=== PATIENT | male | born 1955 | race Caucasian/White ===

== ENCOUNTER → 2018-10-14 | Outpatient (CLI) | payer OTHER ==
--- NOTE | 2018-10-15 08:34 | RADIOLOGY REPORT (SQ) ---
EXAM DESCRIPTION: U/S NON-OB PELVIS LTD W/O DOP COMPLETED DATE/TIME: 10/14/2018 6:05 pm REASON FOR STUDY: R10.31 RIGHT LOWER QUADRANT PAIN R10.31 RIGHT LOWER QUADRANT PAIN COMPARISON: None. TECHNIQUE: Dynamic and static grayscale images acquired of the localized site of clinical concern an d recorded on PACS. Additional selected color Doppler and spectral images recorded. SITE OF CONCERN: Right inguinal region. LIMITATIONS: None. FINDINGS: There is no sonographic evidence of inguinal hernia. There is a single benign-appearing l ymph node. No abnormal solid or cystic masses. In the visualized portion of the upper right scrotum, there is a complex cyst in the head of the epid idymis measuring 1.5 cm. This contains homogeneous low-level internal echoes. This is reportedly is in the area of the patient's pain. IMPRESSION: 1. 1.5 CM CYST IN THE HEAD OF THE EPIDIDYMIS ON THE RIGHT CONTAINING INTERNAL ECHOES, PROBABLY A SPER MATOCELE. THIS REPORTEDLY IS IN THE REGION OF THE PATIENT'S PAIN. 2. NO SONOGRAPHIC EVIDENCE OF RIGHT INGUINAL HERNIA. NO ABNORMAL SONOGRAPHIC FINDINGS IN THIS AREA. TECHNICAL DOCUMENTATION: JOB ID: [id number] [employer]- All Rights Reserved Reading location - IP/workstation name: [email or web address]
== END ==
LOC: RAD 16:47
PROVIDERS: ATTEND Nurse Practitioner Family
DX: R10.31 Right lower quadrant pain (principal)
CPT/HCPCS: 76857

== ENCOUNTER 2019-06-17 00:08 | Inpatient (IN) | payer OTHER ==
[2019-06-17] MEDS ORDERED: ASPIRIN 325 MG TABLET PO ONE (03:25)
[2019-06-17] MEDS ORDERED: NITROGLYCERIN 0.4 MG/TAB 25 TAB/BOTTLE SL PRN ×2 (03:25→05:59)
[2019-06-17 04:01] LABS: ABSOLUTE EOSINOPHILS # (AUTO) 0.1 10^3/uL (0.0-0.6); ABSOLUTE LYMPHOCYTES (AUTO) 1.6 10^3/uL (0.5-4.7); ABSOLUTE MONOCYTES (AUTO) 0.6 10^3/uL (0.1-1.4); ABSOLUTE NEUT (AUTO) 4.1 10^3/uL (1.7-8.2); BASOPHILS % (AUTO) 0.6 % (0-2); EOSINOPHILS % (AUTO) 1.6 % (0-6); HEMATOCRIT 42.2 % (37.9-51.0); HEMOGLOBIN 14.5 g/dL (13.5-17.0); LYMPHOCYTES % (AUTO) 24.9 % (13-45); MEAN CORPUSCULAR HEMOGLOBIN 29.4 pg (27.0-33.4); MEAN CORPUSCULAR HGB CONC 34.5 g/dL (32.0-36.0); MEAN CORPUSCULAR VOLUME 85 fl (80-97); MONOCYTES % (AUTO) 9.8 % (3-13); PLATELET COUNT 157 10^3/uL (150-450); RED BLOOD COUNT 4.94 10^6/uL (4.35-5.55); RED CELL DISTRIBUTION WIDTH 13.5 % (11.5-14.0); SEGMENTED NEUTROPHILS % (AUTO) 63.1 % (42-78); TOTAL CELLS COUNTED % (AUTO) 100 %; WHITE BLOOD COUNT 6.6 10^3/uL (4.0-10.5)
--- NOTE | 2019-06-17 04:22 | RADIOLOGY REPORT (SQ) ---
EXAM DESCRIPTION: XR CHEST 1 VIEW COMPLETED DATE/TME: 06/17/2019 03:00 CLINICAL HISTORY: 63 years, Male, chest pain COMPARISON: None. NUMBER OF VIEWS: 1 TECHNIQUE: Portable chest LIMITATIONS: None. FINDINGS: The heart size is normal. Mild elevation of the right hemidiaphragm. Lungs are clear. No pneumothorax IMPRESSION: No acute cardiopulmonary process copyright 2010 [employer]- All Rights Reserved
[2019-06-17 04:32] LABS: CREATINE KINASE MB 1.62 ng/mL (<4.55)
[2019-06-17 04:34] LABS: TROPONIN I 0.06 ng/mL
--- NOTE | 2019-06-17 04:44 | ER Document Report ---
ED General - General Chief Complaint: Shoulder Pain Stated Complaint: LEFT SHOULDER PAIN Time Seen by Provider: 06/17/19 02:59 Primary Care Provider: MICHAEL LOVE FNP-C [Primary Care Provider] - Follow up as needed Notes: 63-year-old male presents emergency department complaining of left-sided shoulder pain around 10 PM last evening that radiates down his left arm to his hand and across to the left side of his chest. States that it sometimes feel like a pain and sometimes it feels like a burning. It is unrelieved with Aleve and only was partially improved when his massaged his shoulder but then it immediately returned to the same severity as before when he laid down flat. Patient's largest concern is possibility of heart attack as he had both brothers from an VT. One at 58 and the other in his early 60s. Patient is a type II snx-ndcteeo-ddifxvnfz diabetic who is hyperlipidemic and hypertensive. Last stress test was over 2 years ago. Patient does note that this feels somewhat similar to when he was diagnosed with non-Hodgkin's lymphoma however he has not noticed any enlarged lymph nodes in his axilla. States that he has been in remission since 1984. TRAVEL OUTSIDE OF THE [place] IN LAST 30 DAYS: No - Related Data Allergies/Adverse Reactions: No Known Allergies Allergy (Unverified 06/17/19 00:56) Home Medications: lisinopril, metformin, atorvastatin Past Medical History - General Information source: Patient - Social History Smoking Status: Never Smoker Frequency of alcohol use: Occasional Drug Abuse: None Family History: CAD - 2 brothers from heart attacks one at 58 and 1 at 60. Patient has suicidal ideation: No Patient has homicidal ideation: No Neurological Medical History: Reports: Hx Migraine Endocrine Medical History: Reports: Hx Diabetes Mellitus Type 2 Review of Systems - Review of Systems Constitutional: No symptoms reported EENT: No symptoms reported Cardiovascular: See HPI Respiratory: No symptoms reported Musculoskeletal: See HPI -: Yes All other systems reviewed and negative Physical Exam - Vital signs Vitals: Temp Pulse Resp BP Pulse Ox 97.9 F 69 16 169/93 H 98 06/17/19 00:44 06/17/19 00:44 06/17/19 00:44 06/17/19 00:44 06/17/19 00:44 Interpretation: Hypertensive - Notes Notes: GENERAL: Alert, interacts well. No acute distress. HEAD: Normocephalic, atraumatic EYES: Pupils equal, round and reactive to light, extraocular movements intact. ENT: Oral mucosa moist, tongue midline. NECK: Full range of motion, supple, trachea midline. LUNGS: Clear to auscultation bilaterally, no wheezes, rales or rhonchi, no respiratory distress. Slight tenderness palpation in the midclavicular line just below the clavicle on the left-hand side. No rashes noted. HEART: Regular rate and rhythm, no murmurs, gallops, rubs. ABDOMEN: Soft, nontender, nondistended, bowel sounds present in all 4 quadrants. EXTREMITIES: Moves all 4 extremities spontaneously, no edema, radial and dorsalis pedis pulses 2/4 bilaterally. No cyanosis. NEUROLOGICAL: Alert and oriented x3, normal speech. PSYCH: Normal mood, normal affect. SKIN: Warm, Dry, normal turgor, no rashes or lesions noted. Course - Re-evaluation Re-evalutation: 06/17/19 05:42 Patient is chest pain and arm pain free after 1 nitroglycerin, CBC unremarkable, CMP shows elevated glucose at 247, troponin indeterminate 0.060, chest x-ray shows no acute process. EKG shows T wave inversions but not a STEMI. Discussed with patient and family, given Lovenox and aspirin. Discussed with Dr. Rodriguez, agrees to admit the patient to his service. - Vital Signs Vital signs: Temp Pulse Resp BP Pulse Ox 97.9 F 69 14 175/99 H 96 06/17/19 00:49 06/17/19 00:49 06/17/19 05:02 06/17/19 05:02 06/17/19 05:02 - Laboratory Result Diagrams: 06/17/19 03:51 06/17/19 03:51 Laboratory results interpreted by me: 06/17/19 03:51 Glucose 247 H - EKG Interpretation by Me Additional EKG results interpreted by me: 06/17/19 04:44 EKG shows sinus rhythm at a rate of 68, T wave inversions noted in lead III, aVF, V3, no ST segment elevations or depressions per my interpretation. Discharge - Discharge Clinical Impression: Chest pain, rule out acute myocardial infarction Condition: Fair Disposition: ADMITTED INPATIENT Admitting Provider: Jennifer (Hospitalist) Unit Admitted: Telemetry Referrals: MICHAEL LOVE FNP-Vamsi [Primary Care Provider] - Follow up as needed
[2019-06-17 04:45] LABS: ALKALINE PHOSPHATASE 67 U/L (38-126); ANION GAP 12 (5-19); ASPARTATE AMINO TRANSFERASE 30 U/L (17-59); BILIRUBIN,DIRECT 0.2 mg/dL (0.0-0.4); BILIRUBIN,TOTAL 0.5 mg/dL (0.2-1.3); BLOOD UREA NITROGEN 13 mg/dL (7-20); CALCIUM 9.2 mg/dL (8.4-10.2); CARBON DIOXIDE 25 mmol/L (22-30); CHLORIDE 104 mmol/L (98-107); CREATINE KINASE 72 U/L (55-170); GLUCOSE 247 mg/dL (75-110); POTASSIUM 4.3 mmol/L (3.6-5.0); TOTAL PROTEIN 7.2 g/dL (6.3-8.2)
[2019-06-17] MEDS ORDERED: ENOXAPARIN SODIUM INJ 120 MG/0.8 ML DISP.SYRIN SUBCUT ONE (05:36)
[2019-06-17] MEDS ORDERED: TEMAZEPAM 15 MG CAPSULE PO PRN (05:53)
[2019-06-17] MEDS ORDERED: PROMETHAZINE HCL INJ 25 MG/1 ML VIAL IV PRN (05:53)
[2019-06-17] MEDS ORDERED: MAG HYDROX/AL HYDROX/SIMETH SUSP 30 ML UDCUP PO PRN (05:53)
[2019-06-17] MEDS ORDERED: MAGNESIUM HYDROXIDE SUSP 30 ML UDCUP PO PRN (05:53)
[2019-06-17] MEDS ORDERED: HYDRALAZINE HCL INJ/PF 20 MG/1 ML SDV IV PRN (05:59)
[2019-06-17] MEDS ORDERED: LEVALBUTEROL HCL NEB 0.63 MG/3 ML AMPUL NEB PRN (05:59)
[2019-06-17] MEDS ORDERED: DEXTROSE 50%-WATER 25 GM/50 ML DISP.SYRIN IV PRN ×2 (05:59)
[2019-06-17] MEDS ORDERED: DEXTROSE 40% GEL 15 GM TUBE PO PRN ×2 (05:59)
[2019-06-17] MEDS ORDERED: INSULIN REG, HUMAN 100 UNIT/ML 3 ML VIAL (PYX) SUBCUT PRN (05:59)
[2019-06-17] MEDS ORDERED: GLUCAGON,HUMAN RECOMB 1 MG INJ IM PRN (05:59)
[2019-06-17] MEDS ORDERED: MORPHINE SULFATE 10 MG/ML INJ IV PRN ×3 (05:59)
[2019-06-17] MEDS ORDERED: DIAZEPAM 2 MG TABLET PO PRN (06:01)
--- NOTE | 2019-06-17 06:44 | EKG REPORT ---
SEVERITY:- BORDERLINE ECG - SINUS RHYTHM BORDERLINE T ABNORMALITIES, DIFFUSE LEADS : Confirmed by: Waqas Trinidad MD 17-Jun-2019 06:43:39
--- NOTE | 2019-06-17 06:51 | PDOC H&P ---
History of Present Illness Admission Date/PCP: 06/17/19 05:47 BOOGIE GUERRA-Vamsi Patient complains of: Left shoulder pain History of Present Illness: CRISTIAN DE LA ROSA is a 63 year old male who presents the emergency room with an acutely painful left shoulder. He admits the sudden onset of pain in his left posterior shoulder, while at rest, which radiated proximally into his left anterior chest and distally down his left arm. The pain is described as a constant severe burning and aching in the left shoulder. The pain was unrelieved by Ecotrin 81 mg, Aleve, and extra blood pressure pill and only minimally relieved during active massage with return shortly after cessation of the massage. He denies other associated or accompanying signs and symptoms. He denies prior similar episodes. He has not identified any additional aggravating or ameliorating factors for his left shoulder pain. His left shoulder pain resolved immediately following the administration of 1 nitroglycerin sub lingually by the EMS crew. In the emergency room he was found to have an equivocal initial evaluation with no evidence of acute myocardial ischemia or injury on his EKG however his serum troponin was elevated at 0.060. He was subsequently admitted to the hospital for further evaluation treatment on inpatient observation status. Past Medical History Cardiac Medical History: Reports: Hyperlipidema, Hypertension Denies: Atrial Fibrillation, Coronary Artery Disease Pulmonary Medical History: Denies: Asthma, Chronic Obstructive Pulmonary Disease (COPD) EENT Medical History: Denies: Cataracts, Ears - Hearing aids Neurological Medical History: Reports: Migraine Denies: Hemorrhagic CVA, Ischemic CVA, Seizures Endocrine Medical History: Reports: Diabetes Mellitus Type 2, Obesity Denies: Diabetes Mellitus Type 1, Hyperthyroidism, Hypothyroidism Renal/ Medical History: Denies: Chronic Kidney Disease, Nephrolithiasis Malignancy Medical History: Reports: Lymphoma - Hodgkin's lymphoma GI Medical History: Denies: Cirrhosis, Crohn's Disease, Hepatitis, Ulcerative Colitis Musculoskeltal Medical History: Denies: Arthritis, Fibromyalgia Skin Medical History: Denies: Eczema, Psoriasis Psychiatric Medical History: Denies: Alcohol Dependency, Depression, Substance Abuse, Tobacco Dependency, Other Traumatic Medical History: Reports: None Hematology: Denies: Anemia, Bleeding Tendencies Infectious Medical History: Reports: None Past Surgical History Past Surgical History: Reports: Herniorrhaphy, Other - [place] procedure: Chest lymph node biopsies for staging of lymphoma Social History Information Source: Patient Lives with: Spouse/Significant other Smoking Status: Never Smoker Electronic Cigarette use?: No Frequency of Alcohol Use: Rare Hx Recreational Drug Use: No Drugs: None Hx Prescription Drug Abuse: No - Advance Directive Resuscitation Status: Full Code Surrogate healthcare decision maker:: Qi De La Rosa Family History Family History: CAD - 2 brothers from heart attacks one at 58 and 1 at 60., DM, Hypertension, Thyroid Disfunction. denies: Malignancy Parental Family History Reviewed: Yes Children Family History Reviewed: No Sibling(s) Family History Reviewed.: Yes Medication/Allergy Allergies/Adverse Reactions: No Known Allergies Allergy (Unverified 06/17/19 00:56) Review of Systems Constitutional: ABSENT: chills, fever(s) Eyes: ABSENT: visual disturbances, other - Eye pain Ears: ABSENT: hearing changes, other - Ear pain Nose, Mouth, and Throat: ABSENT: headache(s), mouth pain, sore throat Cardiovascular: PRESENT: as per HPI, chest pain. ABSENT: palpitations Respiratory: ABSENT: cough, dyspnea Gastrointestinal: ABSENT: abdominal pain, constipation, diarrhea, nausea, vomiting Genitourinary: ABSENT: dysuria, hematuria Musculoskeletal: PRESENT: as per HPI, other - Left shoulder pain. ABSENT: back pain, joint swelling, muscle weakness Integumentary: ABSENT: pruritus, rash Neurological: ABSENT: confusion, convulsions, focal weakness, memory loss, syncope Psychiatric: ABSENT: anxiety, depression Endocrine: ABSENT: cold intolerance, heat intolerance Hematologic/Lymphatic: ABSENT: easy bleeding, easy bruising Allergic/Immunologic: ABSENT: seasonal rhinorrhea Physical Exam Vital Signs: Temp Pulse Resp BP Pulse Ox 97.9 F 69 14 175/99 H 96 06/17/19 00:49 06/17/19 00:49 06/17/19 05:02 06/17/19 05:02 06/17/19 05:02 Intake & Output 06/15/19 06/16/19 06/17/19 23:59 23:59 23:59 Weight 111.1 kg General appearance: PRESENT: no acute distress, cooperative Head exam: PRESENT: atraumatic, normocephalic Eye exam: PRESENT: conjunctiva pink. ABSENT: conjunctival injection, scleral icterus Ear exam: PRESENT: normal external ear exam. ABSENT: bleeding, drainage Mouth exam: PRESENT: dry mucosa, neck supple Neck exam: ABSENT: thyromegaly, tracheal deviation Respiratory exam: PRESENT: clear to auscultation anthony, symmetrical, unlabored Cardiovascular exam: PRESENT: RRR. ABSENT: clicks, gallop, rubs Pulses: PRESENT: normal radial pulses, normal dorsalis pedis pul GI/Abdominal exam: PRESENT: normal bowel sounds, soft. ABSENT: tenderness Rectal exam: PRESENT: deferred Extremities exam: ABSENT: joint swelling, pedal edema Musculoskeletal exam: ABSENT: deformity, dislocation Neurological exam: PRESENT: alert, oriented to person, oriented to place, oriented to time, oriented to situation, CN II-XII grossly intact. ABSENT: motor sensory deficit Psychiatric exam: PRESENT: appropriate affect, normal mood Skin exam: PRESENT: dry, intact, warm. ABSENT: jaundice, rash, urticaria Results Laboratory Results: 06/17/19 03:51 06/17/19 03:51 06/17/19 06/17/19 03:51 03:51 WBC 6.6 RBC 4.94 Hgb 14.5 Hct 42.2 MCV 85 MCH 29.4 MCHC 34.5 RDW 13.5 Plt Count 157 Seg Neutrophils % 63.1 Sodium 140.6 Potassium 4.3 Chloride 104 Carbon Dioxide 25 Anion Gap 12 BUN 13 Creatinine 0.76 Est GFR ( Amer) > 60 Glucose 247 H Calcium 9.2 Total Bilirubin 0.5 AST 30 Alkaline Phosphatase 67 Total Protein 7.2 Albumin 4.0 06/17/19 06/17/19 03:51 03:51 Creatine Kinase 72 CK-MB (CK-2) 1.62 Troponin I 0.060 Impressions: Chest X-Ray 06/17/19 03:00 IMPRESSION: No acute cardiopulmonary process copyright 2011 [employer]- All Rights Reserved Assessment and Plan - Diagnosis (1) Left shoulder pain Qualifiers: Chronicity: acute Qualified Code(s): M25.512 - Pain in left shoulder Is this a current diagnosis for this admission?: Yes (2) Hypertension Qualifiers: Hypertension type: essential hypertension Qualified Code(s): I10 - Essential (primary) hypertension Is this a current diagnosis for this admission?: Yes (3) Hyperlipidemia Qualifiers: Hyperlipidemia type: unspecified Qualified Code(s): E78.5 - Hyperlipidemia, unspecified Is this a current diagnosis for this admission?: Yes (4) Diabetes mellitus type 2 in obese Is this a current diagnosis for this admission?: Yes (5) History of Hodgkin's lymphoma Is this a current diagnosis for this admission?: Yes - Plan Summary Summary: Patient is admitted to observation status in a telemetry bed. He will receive usual supportive and symptomatic cares. Serial cardiac enzymes will be obtained as well serial EKGs. Patient will be treated with Lovenox 1 mg/kg subcu every 12 hours initially until testing has been completed. A Cardiolite stress test would be appropriate if the patient's cardiac enzymes remain in the indeterminate or normal range. Patient will use morphine sulfate 2 to 4 mg IV every 2 hours on as-needed basis for pain utilizing a sliding scale. Patient was started on clopidogrel and aspirin as well as a statin agent. Cardiology consultation with Dr. Jacky Stoll will be obtained. - Time Time Spent with patient: 25-34 minutes Anticipated discharge: Home Within: within 48 hours - Inpatient Certification Based on my medical assessment, after consideration of the patient's comorbidities, presenting symptoms, or acuity I expect that the services needed warrant INPATIENT care.: No I certify that my determination is in accordance with my understanding of Medicare's requirements for reasonable and necessary INPATIENT services [42 CFR 412.3e].: No Medical Necessity: Significant Comorbidiites Make Outpatient Treatment Too Risky, Need Close Monitoring Due to Risk of Patient Decompensation, Need For Continuous Telemetry Monitoring, Risk of Complication if Not Cared For in Hospital
[2019-06-17 08:42] LABS: CREATINE KINASE MB 1.91 ng/mL (<4.55)
[2019-06-17 08:47] LABS: TROPONIN I 0.106 ng/mL
[2019-06-17] MEDS: METOPROLOL TARTRATE 25 MG TABLET PO SCH ×2 (09:53→21:41)
[2019-06-17] MEDS: FAMOTIDINE 20 MG TABLET PO SCH ×2 (09:53→21:41)
[2019-06-17] MEDS ORDERED: ASPIRIN 81 MG TABLET, ENT COATED PO SCH (10:00)
[2019-06-17] MEDS: DOCUSATE SODIUM 100 MG CAPSULE PO SCH ×2 (10:26→17:39)
--- NOTE | 2019-06-17 12:35 | PDOC PROGRESS REPORT ---
Subjective Progress Note for:: 06/17/19 Subjective:: Patient is currently pain-free but extremely anxious. Strong family history of early heart disease. Reason For Visit: LEFT SHOULDER PAIN,HYPERTENSION,HYPERLIPIDEMIA Physical Exam Vital Signs: Temp Pulse Resp BP Pulse Ox 98.4 F 86 16 160/91 H 95 06/17/19 06:47 06/17/19 12:24 06/17/19 12:24 06/17/19 06:47 06/17/19 12:24 Intake & Output 06/16/19 06/17/19 06/18/19 06:59 06:59 06:59 Weight 109.4 kg General appearance: PRESENT: no acute distress, cooperative, well-developed Head exam: PRESENT: atraumatic, normocephalic Eye exam: PRESENT: conjunctiva pink. ABSENT: scleral icterus Mouth exam: PRESENT: moist, tongue midline Respiratory exam: PRESENT: clear to auscultation anthony, symmetrical, unlabored. ABSENT: rales, rhonchi, tachypnea, wheezes Cardiovascular exam: PRESENT: diastolic murmur - Systolic and possible diastolic murmurs., RRR, +S1, +S2, systolic murmur GI/Abdominal exam: PRESENT: normal bowel sounds, soft. ABSENT: distended, tenderness Rectal exam: PRESENT: deferred Gentrourinary exam: ABSENT: other Extremities exam: PRESENT: full ROM. ABSENT: joint swelling, pedal edema Musculoskeletal exam: PRESENT: ambulatory, normal inspection. ABSENT: deformity Neurological exam: PRESENT: alert, awake, oriented to person, oriented to place, oriented to time, oriented to situation, CN II-XII grossly intact. ABSENT: mot or sensory deficit Psychiatric exam: PRESENT: anxious, appropriate affect. ABSENT: agitated Focused psych exam: ABSENT: delusional, restlessness Skin exam: PRESENT: dry, warm. ABSENT: rash Results Laboratory Results: 06/17/19 03:51 06/17/19 03:51 06/17/19 06/17/19 03:51 03:51 WBC 6.6 RBC 4.94 Hgb 14.5 Hct 42.2 MCV 85 MCH 29.4 MCHC 34.5 RDW 13.5 Plt Count 157 Seg Neutrophils % 63.1 Sodium 140.6 Potassium 4.3 Chloride 104 Carbon Dioxide 25 Anion Gap 12 BUN 13 Creatinine 0.76 Est GFR ( Amer) > 60 Glucose 247 H Calcium 9.2 Total Bilirubin 0.5 AST 30 Alkaline Phosphatase 67 Total Protein 7.2 Albumin 4.0 06/17/19 06/17/19 06/17/19 03:51 03:51 06:04 Creatine Kinase 72 65 CK-MB (CK-2) 1.62 Troponin I 0.060 06/17/19 06/17/19 06/17/19 06:04 07:51 07:51 Creatine Kinase 68 CK-MB (CK-2) 1.58 1.91 Troponin I 0.106 Impressions: Chest X-Ray 06/17/19 03:00 IMPRESSION: No acute cardiopulmonary process copyright 2010 [employer] All Rights Reserved Assessment and Plan - Diagnosis (1) Left shoulder pain Qualifiers: Chronicity: acute Qualified Code(s): M25.512 - Pain in left shoulder Is this a current diagnosis for this admission?: Yes Plan: 06/17/2019-the patient's original complaint was left shoulder discomfort. It was acute onset. It started in the shoulder and radiated proximally as well as distally down the arm. He states that he had minimal relief with massage therapy. As it was persistent he was given 5 mg sublingual nitrogen and he reports that the pain resolved. It is likely that this is musculoskeletal pain. (2) Hypertension Qualifiers: Hypertension type: essential hypertension Qualified Code(s): I10 - Essential (primary) hypertension Is this a current diagnosis for this admission?: Yes Plan: 06/17/2019-the patient has had persistently elevated blood pressure since admission. He is a very anxious person and there is a strong family history of cardiac disease. I have added hydrochlorothiazide 12.5 mg to his lisinopril. Please see the cardiology consult note by Dr. Stoll. It is felt that the enzymes are more likely related to strain from hypertension than acute coronary syndrome. Stress test is not required at this point. I did order an echocardiogram. Dr. Stoll suggests continued monitoring of troponins until there is a downturning level. The patient will be able to discharged home and continue his current medication regimen. A 6 PM troponin is pending. (3) Hyperlipidemia Qualifiers: Hyperlipidemia type: unspecified Qualified Code(s): E78.5 - Hyperlipidemia, unspecified Is this a current diagnosis for this admission?: Yes Plan: 06/17/2019-continue statin therapy (4) Diabetes mellitus type 2 in obese Is this a current diagnosis for this admission?: Yes Plan: 06/17/2019-continue metformin. Sliding scale coverage as well. Encourage strict diabetic/cardiac diet. (5) History of Hodgkin's lymphoma Is this a current diagnosis for this admission?: Yes Plan: 06/17/2019-the patient does have a history of Hodgkin's lymphoma. His CBC is perfectly normal. No evidence recurrence. (6) Anxiety Is this a current diagnosis for this admission?: Yes Plan: 06/17/2019-with the patient's family history of coronary disease concern over this presentation he is extremely anxious. I feel that this is contributing to his ongoing elevation of blood pressure. This will also cause troponin leak. Benzodiazepine therapy is available if needed. - Plan Summary Summary: Patient is admitted to observation status in a telemetry bed. He will receive usual supportive and symptomatic cares. Serial cardiac enzymes will be obtained as well serial EKGs. Patient will be treated with Lovenox 1 mg/kg subcu every 12 hours initially until testing has been completed. A Cardiolite stress test would be appropriate if the patient's cardiac enzymes remain in the indeterminate or normal range. Patient will use morphine sulfate 2 to 4 mg IV every 2 hours on as-needed basis for pain utilizing a sliding scale. Patient was started on clopidogrel and aspirin as well as a statin agent. Cardiology consultation with Dr. Jacky Stoll will be obtained. 06/17/2019-continued elevation trend in the troponins. The third troponin was 0.219. Per my discussion and the cardiac consult note Dr. Stoll has suggested that this is not acute coronary syndrome. Once we have a downtrending troponin the patient can discharge to home. Dr. Stoll will see the patient at follow-up in his office next week. - Time Time Spent with patient: 15-24 minutes Medications reviewed and adjusted accordingly: Yes Anticipated discharge: Home Within: within 24 hours
[2019-06-17] MEDS: ACETAMINOPHEN 325 MG TABLET PO PRN ×2 (14:43→21:41)
[2019-06-17 14:44] LABS: CREATINE KINASE MB 2.04 ng/mL (<4.55)
[2019-06-17 14:49] LABS: TROPONIN I 0.219 ng/mL
--- NOTE | 2019-06-17 15:53 | PDOC CONSULTATION ---
Consultation Consult Date: 06/17/19 Provider Consulted: BRIGIDO LEON History of Present Illness Admission Date/PCP: 06/17/19 13:37 ANNE-MARIE GUERRA Patient complains of: Left shoulder blade pain History of Present Illness: CRISTIAN GUIDRY is a 63 year old male Active problems 1. Systemic hypertension 2. Dyslipidemia 3. Diabetes mellitus 4. Non-Hodgkin's lymphoma and-in remission Patient reports having had left shoulder and shoulder blade pain for approximately 2 years. Symptoms have been waxing and waning but on the most recent episode the pain persisted and the patient sought medical attention. Since admission to the hospital the pain has resolved. No associated symptoms such as dyspnea or palpitations. There are no autonomic symptoms such as nausea vomiting or diaphoresis. Patient specifically does not report any chest pain or chest discomfort. There is no other radiation of this pain. Patient is a non-smoker. There is family history of heart disease. No major surgeries are reported Past Medical History Cardiac Medical History: Reports: Hyperlipidema, Hypertension Denies: Atrial Fibrillation, Coronary Artery Disease Pulmonary Medical History: Denies: Asthma, Chronic Obstructive Pulmonary Disease (COPD) EENT Medical History: Denies: Cataracts, Ears - Hearing aids Neurological Medical History: Reports: Migraine Denies: Hemorrhagic CVA, Ischemic CVA, Seizures Endocrine Medical History: Reports: Diabetes Mellitus Type 2, Obesity Denies: Diabetes Mellitus Type 1, Hyperthyroidism, Hypothyroidism Renal/ Medical History: Denies: Chronic Kidney Disease, Nephrolithiasis Malignancy Medical History: Reports: Lymphoma - Hodgkin's lymphoma GI Medical History: Denies: Cirrhosis, Crohn's Disease, Hepatitis, Ulcerative Colitis Musculoskeltal Medical History: Denies: Arthritis, Fibromyalgia Skin Medical History: Denies: Eczema, Psoriasis Psychiatric Medical History: Denies: Alcohol Dependency, Depression, Substance Abuse, Tobacco Dependency, Other Traumatic Medical History: Reports: None Hematology: Denies: Anemia, Bleeding Tendencies Infectious Medical History: Reports: None Past Surgical History Past Surgical History: Reports: None, Herniorrhaphy, Other - [place] procedure: Chest lymph node biopsies for staging of lymphoma Social History Lives with: Spouse/Significant other Smoking Status: Never Smoker Electronic Cigarette use?: No Frequency of Alcohol Use: Rare Hx Recreational Drug Use: No Drugs: None Hx Prescription Drug Abuse: No - Advance Directive Resuscitation Status: Full Code Family History Family History: CAD - 2 brothers from heart attacks one at 58 and 1 at 60., DM, Hypertension, Thyroid Disfunction. denies: Malignancy Parental Family History Reviewed: Yes - Cardiac history reported. Details not very clear. Children Family History Reviewed: NA Sibling(s) Family History Reviewed.: NA Medication/Allergy Home Medications: Aspirin [Ecotrin 81 mg EC Tablet] 81 mg PO DAILY 06/17/19 Atorvastatin Calcium [Lipitor 40 mg Tablet] 40 mg PO QHS 06/17/19 Lisinopril 20 mg PO DAILY 06/17/19 Metformin HCl 1,000 mg PO BID 06/17/19 Allergies/Adverse Reactions: No Known Allergies Allergy (Unverified 06/17/19 00:56) Review of Systems Constitutional: PRESENT: as per HPI Eyes: PRESENT: as per HPI Cardiovascular: PRESENT: as per HPI Musculoskeletal: PRESENT: as per HPI, other - Left shoulder blade pain. No reproducible component. Integumentary: PRESENT: as per HPI Psychiatric: PRESENT: as per HPI Endocrine: PRESENT: as per HPI Physical Exam Vital Signs: Temp Pulse Resp BP Pulse Ox 97.6 F 86 16 165/82 H 95 06/17/19 12:00 06/17/19 12:24 06/17/19 12:24 06/17/19 12:00 06/17/19 12:24 Intake & Output 06/16/19 06/17/19 06/18/19 06:59 06:59 06:59 Intake Total 118 Balance 118 Weight 109.4 kg General appearance: PRESENT: no acute distress, obese Head exam: PRESENT: atraumatic, normocephalic Eye exam: PRESENT: conjunctiva pink, EOMI Ear exam: PRESENT: normal external ear exam Mouth exam: PRESENT: moist Respiratory exam: PRESENT: unlabored Cardiovascular exam: PRESENT: RRR, +S1, +S2 Pulses: PRESENT: normal radial pulses GI/Abdominal exam: PRESENT: soft Rectal exam: PRESENT: deferred Extremities exam: PRESENT: full ROM Musculoskeletal exam: PRESENT: normal inspection Neurological exam: PRESENT: alert, awake, oriented to person, oriented to place, oriented to time, oriented to situation Psychiatric exam: PRESENT: appropriate affect Skin exam: PRESENT: dry, normal color Results Laboratory Results: 06/17/19 03:51 06/17/19 03:51 06/17/19 06/17/19 03:51 03:51 WBC 6.6 RBC 4.94 Hgb 14.5 Hct 42.2 MCV 85 MCH 29.4 MCHC 34.5 RDW 13.5 Plt Count 157 Seg Neutrophils % 63.1 Sodium 140.6 Potassium 4.3 Chloride 104 Carbon Dioxide 25 Anion Gap 12 BUN 13 Creatinine 0.76 Est GFR ( Amer) > 60 Glucose 247 H Calcium 9.2 Total Bilirubin 0.5 AST 30 Alkaline Phosphatase 67 Total Protein 7.2 Albumin 4.0 06/17/19 06/17/19 06/17/19 03:51 03:51 06:04 Creatine Kinase 72 65 CK-MB (CK-2) 1.62 Troponin I 0.060 06/17/19 06/17/19 06/17/19 06:04 07:51 07:51 Creatine Kinase 68 CK-MB (CK-2) 1.58 1.91 Troponin I 0.106 06/17/19 06/17/19 13:33 13:33 Creatine Kinase 59 CK-MB (CK-2) 2.04 Troponin I 0.219 EKG Comments: Twelve-lead EKG 06/17/2019 7 AM Sinus rhythm 69 bpm borderline inferior T wave abnormalities. Normal AV conduction, QTC is 433 ms. Telemetry sinus rhythm Twelve-lead EKG 06/17/2019 1300 hrs. Sinus rhythm 64 bpm, borderline inferior T wave abnormalities. No significant change from prior EKG. Impressions: Chest X-Ray 06/17/19 03:00 IMPRESSION: No acute cardiopulmonary process copyright 2010 [employer]- All Rights Reserved Assessment & Plan - Diagnosis (1) Chest pain, rule out acute myocardial infarction Is this a current diagnosis for this admission?: Yes Plan: Quite atypical description of chest pain with only left shoulder blade pain which is been longstanding and persistent. There is no component of the symptoms that is new. There is not any correlation with effort. Symptoms do not suggest angina. Mildly elevated troponins with no diagnostic EKG changes to suggest myocardial ischemia in the absence of symptoms to suggest ongoing myocardial ischemia Given patient's risk profile which includes age, systemic hypertension, diabetes mellitus as well as dyslipidemia stress testing would be ideal. However we did not have enough cardiac biomarkers prior to initiating stress testing today. Given improvement in patient's symptoms and if we document that troponins have a downgoing trend stress testing and the stratification can be pursued as an outpatient. Would recommend aspirin 81 mg daily since patient is diabetic. Continue statin, lisinopril as well. (2) Hypertension Qualifiers: Hypertension type: essential hypertension Qualified Code(s): I10 - Essential (primary) hypertension Is this a current diagnosis for this admission?: Yes Plan: Blood pressure was poorly controlled at the time of admission. Continue lisinopril at current dose May need additional antihypertensive agent based on blood pressure readings Avoid added salt in the diet and salt rich foods. (3) Hyperlipidemia Qualifiers: Hyperlipidemia type: unspecified Qualified Code(s): E78.5 - Hyperlipidemia, unspecified Is this a current diagnosis for this admission?: Yes Plan: Continue statin therapy - Notes Notes: Stress testing could not be performed today. However this can be pursued as an outpatient. We will document ongoing trend in troponin level. Continue aspirin statin and antihypertensive. Will need outpatient cardiology follow-up which I have scheduled.
--- NOTE | 2019-06-17 16:38 | XCELERA REPORT ---
[address] [address] Transthoracic Echocardiogram Report Name: CRISTIAN GUIDRY Age: 63 yrs Gender: Male : 1955 Patient Status: Inpatient Patient Location: [address] [place], [place] [id number] Study Date: 06/17/2019 02:49 PM History: Elevated Troponin Height: 70 in Weight: 245 lb BSA: 2.3 m2 Procedure: A two-dimensional transthoracic echocardiogram with color flow and Doppler was performed. The study was technically difficult with many images being suboptimal in quality. Reason For Study: Chest pain, increasing troponin Previous Evaluation: No previous studies were available. History: Diabetes. Dyslipidemia. HTN. Ordering Physician: DANYELL SEGURA Performed By: Mandy Ritter Interpretation Summary Left ventricular systolic function is normal. The Ejection Fraction estimate is 60-65% The right ventricle is normal in size and function. There is no mitral regurgitation noted. There is no aortic valve stenosis There is a trace or physiologic amount of tricuspid regurgitation There is no pericardial effusion. MMode/2D Measurements & Calculations RVDd: 4.3 cm LVIDd: 5.2 cm FS: 41.0 % Ao root diam: IVSd: 0.81 cm LVIDs: 3.0 cm EDV(Teich): 3.3 cm LVPWd: 1.0 cm 127.5 ml Ao root area: ESV(Teich): 8.4 cm2 36.4 ml EF(Teich): 71.4 % EDV(MOD-sp4): SV(MOD-sp4): 138.2 ml 86.3 ml ESV(MOD-sp4): 52.0 ml EF(MOD-sp4): 62.4 % Doppler Measurements & Calculations MV E max akash: MV dec slope: Ao V2 max: LV V1 max P.5 cm/sec 131.8 cm/sec 4.7 mmHg MV A max akash: 435.4 cm/sec2 Ao max P.0 mmHgLV V1 max: 93.8 cm/sec MV dec time: 0.19 sec 108.4 cm/sec MV E/A: 0.89 PA V2 max: PI end-d akash: TR max akash: 92.4 cm/sec 92.5 cm/sec 203.4 cm/sec PA max P.4 mmHg TR max P.5 mmHg Left Ventricle The left ventricle is normal in size. There is mild concentric left ventricular hypertrophy. Left ventricular systolic function is normal. The left ventricular ejection fraction is preserved. The Ejection Fraction estimate is 60-65%. Doppler measurements suggest impaired left ventricular relaxation, which is associated with grade I/IV or mild diastolic dysfunction. The left ventricular wall motion is normal. Right Ventricle The right ventricle is normal in size and function. Atria The right atrium is normal in size. The left atrium is mildly dilated. The interatrial septum is intact with no evidence for an atrial septal defect. Mitral Valve The mitral valve is normal in structure and function. There is no mitral valve stenosis. There is no mitral regurgitation noted. Aortic Valve The aortic valve opens well. There is no aortic valve stenosis. No aortic regurgitation is present. Tricuspid Valve The tricuspid valve is normal in structure and function. There is no tricuspid stenosis. There is a trace or physiologic amount of tricuspid regurgitation. Doppler findings do not suggest pulmonary hypertension. Pulmonic Valve The pulmonic valve is normal in structure and function. There is a trace or physiologic amount of pulmonic regurgitation. Great Vessels The aortic root is normal size. The inferior vena cava appeared normal and decreased < 50% with respiration (RAP 10-15 mmHg). Effusions There is no pericardial effusion. : DANYELL SEGURA Anil
[2019-06-17] MEDS: METFORMIN HCL 500 MG TABLET PO SCH (17:41)
[2019-06-17] MEDS ORDERED: (PENDING PHARMACY ID) (Metformin Hcl [Metformin Hcl] 1,000 MG) PO SCH (18:00)
[2019-06-17] MEDS ORDERED: ENOXAPARIN SODIUM INJ 120 MG/0.8 ML DISP.SYRIN SUBCUT SCH (18:00)
[2019-06-17] MEDS ORDERED: HYDROCHLOROTHIAZIDE 12.5 MG TABLET PO ONE (18:49)
[2019-06-17] MEDS ORDERED: LORAZEPAM INJ 2 MG/1 ML VIAL IV PRN (18:50)
[2019-06-17 18:57] LABS: CREATINE KINASE MB 2.17 ng/mL (<4.55); TROPONIN I 0.272 ng/mL
--- NOTE | 2019-06-17 21:34 | EKG REPORT ---
SEVERITY:- BORDERLINE ECG - SINUS RHYTHM BORDERLINE T ABNORMALITIES, INFERIOR LEADS : Confirmed by: Waqas Trinidad MD 17-Jun-2019 21:33:26
--- NOTE | 2019-06-17 21:35 | EKG REPORT ---
SEVERITY:- BORDERLINE ECG - SINUS RHYTHM BORDERLINE T ABNORMALITIES, INFERIOR LEADS : Confirmed by: Waqas Trinidad MD 17-Jun-2019 21:33:43
[2019-06-17] MEDS ORDERED: ATORVASTATIN CALCIUM 40 MG TABLET PO SCH (22:00)
[2019-06-17] MEDS ORDERED: ATORVASTATIN CALCIUM 80 MG TABLET PO SCH (22:00)
[2019-06-18 07:00] LABS: HEMATOCRIT 43.5 % (37.9-51.0); MEAN CORPUSCULAR HEMOGLOBIN 29.5 pg (27.0-33.4); MEAN CORPUSCULAR HGB CONC 34.6 g/dL (32.0-36.0); MEAN CORPUSCULAR VOLUME 85 fl (80-97); PLATELET COUNT 166 10^3/uL (150-450); RED BLOOD COUNT 5.09 10^6/uL (4.35-5.55); RED CELL DISTRIBUTION WIDTH 13.6 % (11.5-14.0); WHITE BLOOD COUNT 7.5 10^3/uL (4.0-10.5)
[2019-06-18 07:27] LABS: CHOLESTEROL 196.16 mg/dL (0-200); TRIGLYCERIDES 304 mg/dL (<150)
--- NOTE | 2019-06-18 07:36 | EKG REPORT ---
SEVERITY:- BORDERLINE ECG - SINUS RHYTHM BORDERLINE T ABNORMALITIES, INFERIOR LEADS : Confirmed by: Waqas Trinidad MD 18-Jun-2019 07:36:10
[2019-06-18 07:40] LABS: DIRECT LDL 124 mg/dL (<100)
[2019-06-18 07:42] LABS: VLDL CHOLESTEROL 60.8 mg/dL (10-31)
[2019-06-18] MEDS: ACETAMINOPHEN 325 MG TABLET PO PRN (07:43)
[2019-06-18] MEDS ORDERED: HYDROCHLOROTHIAZIDE 12.5 MG TABLET PO SCH (08:00)
[2019-06-18] MEDS: METFORMIN HCL 500 MG TABLET PO SCH (09:47)
[2019-06-18] MEDS: METOPROLOL TARTRATE 25 MG TABLET PO SCH (09:47)
[2019-06-18] MEDS: FAMOTIDINE 20 MG TABLET PO SCH (09:48)
[2019-06-18] MEDS: DOCUSATE SODIUM 100 MG CAPSULE PO SCH (09:48)
[2019-06-18] MEDS ORDERED: ENOXAPARIN SODIUM INJ 120 MG/0.8 ML DISP.SYRIN SUBCUT SCH (10:00)
[2019-06-18] MEDS ORDERED: (PENDING PHARMACY ID) (Lisinopril [Lisinopril] 20 MG) PO SCH (10:00)
[2019-06-18] MEDS ORDERED: ASPIRIN 81 MG TABLET, ENT COATED PO SCH (10:00)
[2019-06-18] MEDS ORDERED: LISINOPRIL 10 MG TABLET PO SCH (10:00)
--- NOTE | 2019-06-18 12:07 | PDOC DISCHARGE SUMMARY ---
Impression - Admit/DC Date/PCP Admission Date/Primary Care Provider: 06/17/19 13:37 ANNE-MARIE GUERRA Discharge Date: 06/18/19 - Discharge Diagnosis (1) Hypertensive emergency without congestive heart failure Is this a current diagnosis for this admission?: Yes (2) Left shoulder pain Is this a current diagnosis for this admission?: Yes (3) Hypertension Is this a current diagnosis for this admission?: Yes (4) Diabetes mellitus type 2 in obese Is this a current diagnosis for this admission?: Yes (5) History of Hodgkin's lymphoma Is this a current diagnosis for this admission?: Yes (6) Hyperlipidemia Is this a current diagnosis for this admission?: Yes - Assessment Summary: Patient had presented with left shoulder and left back pain. At the time, patient's blood pressures were elevated with his systolic pressure going as high as 180 and diastolic as high as 112. EKG was obtained which showed borderline T wave abnormalities. Troponin was measured which was mildly elevated at 0.06. Patient was subsequently admitted for evaluation of chest pain equivalent with concern for ischemic event. Chest x-ray was obtained which showed no acute pul monary processes. Patient was given a dose of aspirin and Plavix. Patient's troponin measurements continue to increase and peaked at 0.27. Anticoagulation was started with concern for potential ACS while attributing the left shoulder and left upper back pain to be chest pain equivalent. Cardiology was consulted to see patient and felt that patient's symptoms were likely secondary to patient's uncontrolled hypertension. Patient was given antihypertensives lisinopril 20 mg and started on new regimen of Lopressor and hydrochlorothiazide and achieved proper blood pressure control. Troponins later down trended and chest pain resolved. Echocardiogram showed normal systolic and diastolic function as well as normal left ventricular wall motion. Anticoagulation has been discontinued. Patient has been set up by Dr. Brigido Leon to see patient in the outpatient clinic for potential stress test. - Additional Information Resuscitation Status: Full Code Discharge Diet: Cardiac Discharge Activity: Activity As Tolerated Referrals: MICHAEL LOVE FNP-C [Primary Care Provider] - 06/22/19 11:00 am BRIGIDO LEON MD [ACTIVE STAFF] - Prescriptions: Hydrochlorothiazide [Hydrodiuril 12.5 mg Tablet] 12.5 mg PO DAILY #30 tablet Metoprolol Tartrate [Lopressor 25 mg Tablet] 12.5 mg PO Q12 #40 tablet Home Medications: Aspirin [Ecotrin 81 mg EC Tablet] 81 mg PO DAILY 06/17/19 Atorvastatin Calcium [Lipitor 40 mg Tablet] 40 mg PO QHS 06/17/19 Lisinopril 20 mg PO DAILY 06/17/19 Metformin HCl 1,000 mg PO BID 06/17/19 Hydrochlorothiazide [Hydrodiuril 12.5 mg Tablet] 12.5 mg PO DAILY #30 tablet 06/18/19 Metoprolol Tartrate [Lopressor 25 mg Tablet] 12.5 mg PO Q12 #40 tablet 06/18/19 History of Present Illiness History of Present Illness: CRISTIAN GUIDRY is a 63 year old male who presents the emergency room with an acutely painful left shoulder. He admits the sudden onset of pain in his left posterior shoulder, while at rest, which radiated proximally into his left anterior chest and distally down his left arm. The pain is described as a constant severe burning and aching in the left shoulder. The pain was unrelieved by Ecotrin 81 mg, Aleve, and extra blood pressure pill and only minimally relieved during active massage with return shortly after cessation of the massage. He denies other associated or accompanying signs and symptoms. He denies prior similar episodes. He has not identified any additional aggravating or ameliorating factors for his left shoulder pain. His left shoulder pain resolved immediately following the administration of 1 nitroglycerin subl ingually by the EMS crew. In the emergency room he was found to have an equivocal initial evaluation with no evidence of acute myocardial ischemia or injury on his EKG however his serum troponin was elevated at 0.060. He was subsequently admitted to the hospital for further evaluation treatment on inpatient observation status. Physical Exam Vital Signs: Temp Pulse Resp BP Pulse Ox 97.6 F 67 16 138/79 H 96 06/18/19 07:41 06/18/19 07:41 06/18/19 07:41 06/18/19 07:41 06/18/19 07:41 Intake & Output 06/17/19 06/18/19 06/19/19 06:59 06:59 06:59 Intake Total 978 Balance 978 Weight 109.4 kg General appearance: PRESENT: no acute distress, cooperative Respiratory exam: PRESENT: clear to auscultation anthony. ABSENT: chest wall tenderness Cardiovascular exam: PRESENT: +S1, +S2 Results Laboratory Results: WBC 7.5 10^3/uL (4.0-10.5) 06/18/19 06:27 RBC 5.09 10^6/uL (4.35-5.55) 06/18/19 06:27 Hgb 15.0 g/dL (13.5-17.0) 06/18/19 06:27 Hct 43.5 % (37.9-51.0) 06/18/19 06:27 MCV 85 fl (80-97) 06/18/19 06:27 MCH 29.5 pg (27.0-33.4) 06/18/19 06:27 MCHC 34.6 g/dL (32.0-36.0) 06/18/19 06:27 RDW 13.6 % (11.5-14.0) 06/18/19 06:27 Plt Count 166 10^3/uL (150-450) 06/18/19 06:27 Lymph % (Auto) 24.9 % (13-45) 06/17/19 03:51 [place] % (Auto) 9.8 % (3-13) 06/17/19 03:51 Eos % (Auto) 1.6 % (0-6) 06/17/19 03:51 Baso % (Auto) 0.6 % (0-2) 06/17/19 03:51 Absolute Neuts (auto) 4.1 10^3/uL (1.7-8.2) 06/17/19 03:51 Absolute Lymphs (auto) 1.6 10^3/uL (0.5-4.7) 06/17/19 03:51 Absolute Monos (auto) 0.6 10^3/uL (0.1-1.4) 06/17/19 03:51 Absolute Eos (auto) 0.1 10^3/uL (0.0-0.6) 06/17/19 03:51 Absolute Basos (auto) 0.0 10^3/uL (0.0-0.2) 06/17/19 03:51 Seg Neutrophils % 63.1 % (42-78) 06/17/19 03:51 Sodium 140.6 mmol/L (137-145) 06/17/19 03:51 Potassium 4.3 mmol/L (3.6-5.0) 06/17/19 03:51 Chloride 104 mmol/L (98-107) 06/17/19 03:51 Carbon Dioxide 25 mmol/L (22-30) 06/17/19 03:51 Anion Gap 12 (5-19) 06/17/19 03:51 BUN 13 mg/dL (7-20) 06/17/19 03:51 Creatinine 0.76 mg/dL (0.52-1.25) 06/17/19 03:51 Est GFR ( Amer) > 60 (>60) 06/17/19 03:51 Est GFR (MDRD) Non-Af > 60 (>60) 06/17/19 03:51 Glucose 247 mg/dL (75-110) H 06/17/19 03:51 POC Glucose 176 mg/dL (70-110) H 06/18/19 11:23 Hemoglobin A1c % 7.7 % (4.7-6.0) H 06/18/19 06:27 Calcium 9.2 mg/dL (8.4-10.2) 06/17/19 03:51 Magnesium 1.9 mg/dL (1.6-2.3) 06/18/19 06:27 Total Bilirubin 0.5 mg/dL (0.2-1.3) 06/17/19 03:51 Direct Bilirubin 0.2 mg/dL (0.0-0.4) 06/17/19 03:51 Neonat Total Bilirubin Not Reportable 06/17/19 03:51 Neonat Direct Bilirubin Not Reportable 06/17/19 03:51 Neonat Indirect Bili Not Reportable 06/17/19 03:51 AST 30 U/L (17-59) 06/17/19 03:51 ALT 35 U/L (<50) 06/17/19 03:51 Alkaline Phosphatase 67 U/L (38-126) 06/17/19 03:51 Creatine Kinase 64 U/L (55-170) 06/17/19 17:56 CK-MB (CK-2) 2.17 ng/mL (<4.55) 06/17/19 17:56 Troponin I 0.130 ng/mL 06/18/19 06:27 Total Protein 7.2 g/dL (6.3-8.2) 06/17/19 03:51 Albumin 4.0 g/dL (3.5-5.0) 06/17/19 03:51 Triglycerides 304 mg/dL (<150) H 06/18/19 06:27 Cholesterol 196.16 mg/dL (0-200) 06/18/19 06:27 LDL Cholesterol Direct 124 mg/dL (<100) H 06/18/19 06:27 VLDL Cholesterol 60.8 mg/dL (10-31) H 06/18/19 06:27 HDL Cholesterol 33 mg/dL (>40) L 06/18/19 06:27 TSH 2.54 uIU/mL (0.47-4.68) 06/18/19 06:27 06/17/19 06/17/19 06/17/19 03:51 06:04 07:51 CK-MB (CK-2) 1.62 1.58 1.91 Troponin I 0.060 0.106 06/17/19 06/17/19 06/17/19 13:33 17:56 23:47 CK-MB (CK-2) 2.04 2.17 Troponin I 0.219 0.272 0.183 06/18/19 06:27 CK-MB (CK-2) Troponin I 0.130 Impressions: Chest X-Ray 06/17/19 03:00 IMPRESSION: No acute cardiopulmonary process copyright 2011 [employer]- All Rights Reserved Plan Time Spent: Less than 30 Minutes Stroke Is this a Stroke Patient?: No Acute Heart Failure - Is this a Heart Failure Patient?: No
--- NOTE | 2019-06-18 12:17 | PDOC PROGRESS REPORT ---
Subjective Progress Note for:: 06/18/19 Reason For Visit: POSITIVE TROPONINS Physical Exam Vital Signs: Temp Pulse Resp BP Pulse Ox 97.6 F 67 16 138/79 H 96 06/18/19 07:41 06/18/19 07:41 06/18/19 07:41 06/18/19 07:41 06/18/19 07:41 Intake & Output 06/17/19 06/18/19 06/19/19 06:59 06:59 06:59 Intake Total 978 Balance 978 Weight 109.4 kg General appearance: PRESENT: no acute distress Head exam: PRESENT: atraumatic, normocephalic Eye exam: PRESENT: EOMI Mouth exam: PRESENT: moist Respiratory exam: PRESENT: symmetrical, unlabored Cardiovascular exam: PRESENT: RRR, +S1, +S2 Pulses: PRESENT: normal radial pulses GI/Abdominal exam: PRESENT: soft Rectal exam: PRESENT: deferred Musculoskeletal exam: PRESENT: normal inspection Neurological exam: PRESENT: alert, awake, oriented to person, oriented to place, oriented to time, oriented to situation Psychiatric exam: PRESENT: appropriate affect Skin exam: PRESENT: dry, normal color Results Laboratory Results: 06/18/19 06:27 06/17/19 03:51 06/18/19 06/18/19 06/18/19 06:27 06:27 06:27 WBC 7.5 RBC 5.09 Hgb 15.0 Hct 43.5 MCV 85 MCH 29.5 MCHC 34.6 RDW 13.6 Plt Count 166 Magnesium 1.9 Triglycerides 304 H Cholesterol 196.16 LDL Cholesterol Direct 124 H VLDL Cholesterol 60.8 H HDL Cholesterol 33 L TSH 2.54 06/17/19 06/17/19 06/17/19 03:51 03:51 06:04 Creatine Kinase 72 65 CK-MB (CK-2) 1.62 Troponin I 0.060 06/17/19 06/17/19 06/17/19 06:04 07:51 07:51 Creatine Kinase 68 CK-MB (CK-2) 1.58 1.91 Troponin I 0.106 06/17/19 06/17/19 06/17/19 13:33 13:33 17:56 Creatine Kinase 59 64 CK-MB (CK-2) 2.04 Troponin I 0.219 06/17/19 06/17/19 06/18/19 17:56 23:47 06:27 Creatine Kinase CK-MB (CK-2) 2.17 Troponin I 0.272 0.183 0.130 EKG Comments: Sinus rhythm at 61 bpm on telemetry Impressions: Chest X-Ray 06/17/19 03:00 IMPRESSION: No acute cardiopulmonary process copyright 2011 [employer]- All Rights Reserved Assessment & Plan - Diagnosis (1) Chest pain, rule out acute myocardial infarction Is this a current diagnosis for this admission?: Yes Plan: Troponin level has decreased. Likely myocardial strain due to systemic hypertension. Clinically does not behave like acute coronary syndrome es pecially with absent chest pain and lack of significant EKG changes. Patient no longer complains of chest pain either Plan for outpatient stress testing for stratification given risk factors of van nary artery disease such as systemic hypertension, diabetes mellitus as well as dyslipidemia. Continue aspirin 81 mg daily until we finish work-up. (2) Hypertension Qualifiers: Hypertension type: essential hypertension Qualified Code(s): I10 - Essential (primary) hypertension Is this a current diagnosis for this admission?: Yes Plan: Avoid added salt in the diet Continue present therapy for systemic hypertension. (3) Hyperlipidemia Qualifiers: Hyperlipidemia type: unspecified Qualified Code(s): E78.5 - Hyperlipidemia, unspecified Is this a current diagnosis for this admission?: Yes Plan: Continue statin therapy - Notes Notes: From a clinical standpoint patient has no chest pain. Cardiac biomarker troponin was mildly elevated without active chest pain. These levels have since then come down. Plan is for outpatient stress testing. This was discussed with the patient and all questions were answered. He is to continue aspirin 81 mg daily until we finish work-up. He is to continue other medications of systemic hypertension diabetes mellitus as well as dyslipidemia.
[2019-06-18 12:46] VITALS: BP 147/91
== END 2019-06-18 12:59 | disposition home or self-care (01) | DRG 305 ==
LOC: ER 00:08 → EH 05:47 → INTOOBSV 05:47 → 4W 06:40 → OBSVTOIN 13:37 → 4S 14:25
PROVIDERS: ADMIT Emergency Medicine; ATTEND Emergency Medicine
DX: I16.1 Hypertensive emergency (principal); I10 Essential (primary) hypertension; E11.9 Type 2 diabetes mellitus without complications; E66.9 Obesity, unspecified; E78.5 Hyperlipidemia, unspecified; M25.512 Pain in left shoulder; F41.9 Anxiety disorder, unspecified; Z79.899 Other long term (current) drug therapy; Z79.84 Long term (current) use of oral hypoglycemic drugs; Z79.82 Long term (current) use of aspirin; Z85.72 Personal history of non-Hodgkin lymphomas; Z83.3 Family history of diabetes mellitus; Z82.49 Family history of ischemic heart disease and other diseases of the circulatory system
CPT/HCPCS: 36415; 71045; 80053; 80061; 82550; 82553; 82962; 83036; 83735; 84443; 84484; 85025; 85027; 93005; 93010; 93306; 99285; G0378; J0360; J1650; J3490

== ENCOUNTER → 2019-07-22 | Outpatient (CLI) | payer OTHER ==
--- NOTE | 2019-07-22 13:59 | RADIOLOGY REPORT (SQ) ---
EXAM DESCRIPTION: SHOULDER LEFT 2 OR MORE VIEWS COMPLETED DATE/TIME: 07/22/2019 12:23 pm REASON FOR STUDY: ACUTE PAIN OF LEFT SHOULDER M25.512 PAIN IN LEFT SHOULDER COMPARISON: None. NUMBER OF VIEWS: Three views. TECHNIQUE: Internal rotation, external rotation, and Y view images of the left shoulder were obtaine d. LIMITATIONS: None. FINDINGS: MINERALIZATION: Normal. BONES: No acute fracture or dislocation. JOINTS: Osteoarthrosis of the acromioclavicular joint. VISUALIZED LUNGS AND RIBS: No pneumothorax or rib fracture. SOFT TISSUES: No radiopaque foreign body. OTHER: No other finding. IMPRESSION: 1. No acute osseous abnormality of the left shoulder. 2. Osteoarthrosis of the acromioclavicular joint. TECHNICAL DOCUMENTATION: JOB ID: [id number] [employer]- All Rights Reserved Reading location - IP/workstation name: [email or web address]
== END ==
LOC: OD 11:59
PROVIDERS: ATTEND Nurse Practitioner Family
DX: M19.012 Primary osteoarthritis, left shoulder (principal); M25.512 Pain in left shoulder